=== PATIENT | male | born 1975 | race Two or more races ===

== ENCOUNTER 2016-11-25 13:00 | Emergency (ER) | payer SELFPAY ==
[2016-11-25] MEDS ORDERED: NAPR500T PO (13:20)
--- NOTE | 2016-11-25 13:21 | PHYS DOC ---
Adult General Chief Complaint Chief Complaint: TOE PROBLEM HPI HPI Patient is a 41 year old male presents to the emergency department with complaints of chronic left toe pain. He states he's had a callus on the toe and some insulin come in the emergency department to have it removed. He has no complaints of swelling or erythema. He states the area over the callus is uncomfortable. Review of Systems Review of Systems Constitutional: Denies fever or chills [] Eyes: Denies change in visual acuity, redness, or eye pain [] HENT: Denies nasal congestion or sore throat [] Respiratory: Denies cough or shortness of breath [] Cardiovascular: No additional information not addressed in HPI [] GI: Denies abdominal pain, nausea, vomiting, bloody stools or diarrhea [] : Denies dysuria or hematuria [] Musculoskeletal: Left great toe pain Integument: Denies rash or skin lesions [] Neurologic: Denies headache, focal weakness or sensory changes [] Endocrine: Denies polyuria or polydipsia [] Physical Exam Physical Exam Skin: Warm, dry, no erythema, no rash. [] Extremities: Left foot exam unremarkable. Left great toe without swelling without erythema. He has a callus over the dorsal aspect of the toe that does appear to be mildly tender to palpate. There is no fluctuance. There is no no erythema. Remainder for exam unremarkable. Neurovascular intact distally. Full range of motion total difficult. EKG EKG [] Radiology/Procedures Radiology/Procedures [] Course & Med Decision Making Course & Med Decision Making Pertinent Labs and Imaging studies reviewed. (See chart for details) [] Dragon Disclaimer Dragon Disclaimer This electronic medical record was generated, in whole or in part, using a voice recognition dictation system. Departure Departure Impression: Primary Impression: Callus of foot Disposition: HOME, SELF-CARE Condition: STABLE Referrals: NO PCP (PCP) Patient Instructions: Corns and Calluses-SportsMed Scripts Naproxen (NAPROSYN) 500 Mg Tablet 1 TAB PO BID Y for PAIN, #20 TAB 1 Refill Prov: KWAN LONG APRN 11/25/16 KWAN LONG APRN Nov 25, 2016 13:21
[2016-11-25 13:30] VITALS: BP 134/80
== END 2016-11-25 13:44 | disposition home or self-care (01) ==
LOC: ER 13:00
DX: L84 Corns and callosities (principal); G89.29 Other chronic pain
CPT/HCPCS: 99283